=== PATIENT | female | born 1995 | race Caucasian/White ===

== ENCOUNTER 2019-05-04 16:00 | Inpatient (IN) | payer OTHER ==
[~2019-05-04] VITALS: Ht 154.9 cm; Wt 63.1 kg
[~2019-05-04 16:00] MED LIST: PNV11TAB PO
[2019-05-04 17:26] VITALS: Ht 154.9 cm; Wt 63.1 kg
[2019-05-04] MEDS ORDERED: LIDOCAINE 1% (MPF) 30 ML INJ INJ PRN (17:30)
[2019-05-04] MEDS ORDERED: METHYLERGONOVINE 0.2 MG INJ IM PRN (17:30)
[2019-05-04] MEDS ORDERED: IBUPROFEN 600 MG TAB PO PRN (17:30)
[2019-05-04] MEDS ORDERED: BUTORPHANOL 2 MG INJ IV PRN (17:30)
[2019-05-04] MEDS ORDERED: MISOPROSTOL 200 MCG TAB PR PRN (17:30)
[2019-05-04] MEDS ORDERED: OXYTOCIN 30 UNITS/LR 500 ML IV SCH ×2 (17:30)
[2019-05-04] MEDS ORDERED: CARBOPROST 250 MCG INJ IM PRN (17:30)
[2019-05-04] MEDS ORDERED: OXYTOCIN 30 UNITS/LR 500 ML IV PRN (17:30)
[2019-05-04] MEDS: LACTATED RINGER'S 1,000 ML IV SCH (17:45)
[2019-05-04] MEDS ORDERED: AMPICILLIN 2 GM/NS (PMX) 100 ML IV ONE (18:30)
[2019-05-04] MEDS: MISOPROSTOL 50 MCG CAPSULE PO SCH (20:12)
[2019-05-04] MEDS: AMPICILLIN 1 GM/NS (PMX) 50 ML IV SCH (22:39)
[2019-05-05] MEDS: LACTATED RINGER'S 1,000 ML IV SCH ×4 (00:44→21:38)
[2019-05-05] MEDS: MISOPROSTOL 50 MCG CAPSULE PO SCH ×5 (00:44→13:53)
[2019-05-05] MEDS: AMPICILLIN 1 GM/NS (PMX) 50 ML IV SCH ×6 (02:06→22:30)
[2019-05-05] MEDS ORDERED: LACTATED RINGER'S 1,000 ML IV ONE (17:00)
[2019-05-05] MEDS ORDERED: OXYTOCIN 30 UNITS/LR 500 ML IV SCH (17:00)
[2019-05-05] MEDS ORDERED: ONDANSETRON 4 MG INJ IV PRN (17:30)
[2019-05-05] MEDS ORDERED: FENTAnyl 2MCG/ML-ROPIV 0.2% 100 ML BAG EPI SCH (17:30)
[2019-05-05] MEDS ORDERED: NALOXONE (0.4 MG/ML) INJ IV PRN (17:30)
[2019-05-05] MEDS ORDERED: DIPHENHYDRAMINE 50 MG INJ IV PRN (17:30)
[2019-05-05] MEDS ORDERED: MINERAL OIL LIGHT 10 ML VIAL TOP PRN (23:30)
[2019-05-06 02:45] VITALS: BP 113/60; PULSE 62; RESP 18
[2019-05-06 04:00] VITALS: BP 103/54; PULSE 63; RESP 18
[2019-05-06] MEDS ORDERED: LACTATED RINGER'S 1,000 ML IV* SCH (04:11)
[2019-05-06] MEDS ORDERED: DEXTROSE 5%-LR 1,000 ML IV SCH (04:11)
[2019-05-06] MEDS ORDERED: MISOPROSTOL 200 MCG TAB PR PRN (04:30)
[2019-05-06] MEDS ORDERED: METHYLERGONOVINE 0.2 MG INJ IM PRN (04:30)
[2019-05-06] MEDS ORDERED: DIPHENHYDRAMINE 50 MG INJ IV PRN (04:30)
[2019-05-06] MEDS ORDERED: OXYTOCIN 30 UNITS/LR 500 ML IV PRN (04:30)
[2019-05-06] MEDS ORDERED: WITCH HAZEL/GLYCERIN PAD PR PRN (04:30)
[2019-05-06] MEDS ORDERED: BENZOCAINE 20% 56 ML SPRAY TOP PRN (04:30)
[2019-05-06] MEDS ORDERED: ZOLPIDEM 5 MG TAB PO PRN (04:30)
[2019-05-06] MEDS ORDERED: ACETAMINOPHEN 325 MG TAB PO PRN (04:30)
[2019-05-06] MEDS ORDERED: DIBUCAINE 1% 30 GM OINT TOP PRN (04:30)
[2019-05-06] MEDS ORDERED: CARBOPROST 250 MCG INJ IM PRN (04:30)
[2019-05-06] MEDS ORDERED: LANOLIN HPA 1 PKT TOP PRN (04:30)
[2019-05-06] MEDS ORDERED: MAGNESIUM HYDROXIDE 30ML CUP PO PRN (04:30)
[2019-05-06] MEDS ORDERED: OXYCODONE/ASPIRIN (4.88/325) TAB PO PRN (04:30)
[2019-05-06] MEDS ORDERED: ONDANSETRON 4 MG INJ IV PRN (04:30)
[2019-05-06] MEDS ORDERED: SENNA/DOCUSATE NA (8.6MG/50MG) TAB PO PRN (04:30)
[2019-05-06] MEDS: IBUPROFEN 600 MG TAB PO SCH ×4 (05:48→23:43)
[2019-05-06 08:00] VITALS: BP 117/61; PULSE 63; RESP 18
[2019-05-06 12:06] VITALS: BP 118/60; PULSE 68; RESP 18
[2019-05-06 15:53] VITALS: BP 116/62; PULSE 74; RESP 18
[2019-05-06 19:50] VITALS: BP 127/62; PULSE 80; RESP 18
[2019-05-07 03:50] VITALS: BP 97/68; PULSE 65; RESP 19
[2019-05-07] MEDS: IBUPROFEN 600 MG TAB PO SCH ×3 (05:32→17:34)
[2019-05-07 08:00] VITALS: BP 123/73; PULSE 64; RESP 18
[2019-05-07 16:00] VITALS: BP 122/72; PULSE 63; RESP 18
[2019-05-07 20:00] VITALS: BP 118/58; PULSE 70; RESP 18
[2019-05-08] MEDS: IBUPROFEN 600 MG TAB PO SCH ×4 (03:06→12:01)
[2019-05-08 03:57] VITALS: BP 122/68; PULSE 65; RESP 18
[2019-05-08 08:00] VITALS: BP 127/66; PULSE 78; RESP 18
[2019-05-08] MEDS ORDERED: DIPHTH/TET/ACEL PERTUSS (ADULT) 0.5 ML VIAL IM* ONE (09:00)
[2019-05-08] MEDS ORDERED: MEASLES,MUMPS,RUBELLA VACCINE INJ SC* ONE (09:00)
== END 2019-05-08 13:50 | disposition home or self-care (01) | DRG 807 ==
LOC: L-D 16:37 → PP1 05-06 02:43
PROVIDERS: ADMIT Obstetrics & Gynecology; ATTEND Obstetrics & Gynecology
PROC: 10E0XZZ Delivery of Products of Conception, External Approach (ICD-10-PCS; principal; 2019-05-06)
DX: O48.0 Post-term pregnancy (principal); O99.214 Obesity complicating childbirth; O69.81X0 Labor and delivery complicated by cord around neck, without compression, not applicable or unspecified; Z3A.40 40 weeks gestation of pregnancy; Z37.0 Single live birth
CPT/HCPCS: 62322; 76815; 85025; 85610; 85730; 86592; 86850; 86900; 86901; 87340; 99464; J0290; J0595; J2590; J3010; J7120; J7121